=== PATIENT | female | born 1995 | race Caucasian/White ===

== ENCOUNTER → 2017-01-16 | Outpatient (CLI) | payer OTHER ==
[2017-01-16 10:55] LABS: PREG INTERNAL NEGATIVE QC NEG CLEAR BACKGROUND; PREG INTERNAL POSITIVE QC POS CONTROL LINE
== END | disposition home or self-care (01) ==
LOC: C.LAB 10:06
PROVIDERS: ATTEND Physician Assistant
DX: Z30.9 Encounter for contraceptive management, unspecified (principal)

== ENCOUNTER 2017-09-15 11:30 | Emergency (ER) | payer BC, OTHER ==
[~2017-09-15] VITALS: Ht 165.1 cm; Wt 100.0 kg
[2017-09-15 11:32] VITALS: TEMP 36.8; Ht 165.1 cm; Wt 100.0 kg
--- NOTE | 2017-09-15 12:20 | EMERGENCY ROOM VISIT NOTE ---
History First contact with patient: 11:36 Chief Complaint: ABDOMINAL PAIN Stated Complaint: ABD PAIN Nursing Triage Summary: lower abd pain started his am, " feels like i had to go to the br, sat on the toilet, i passed a clot, don't no if it was rectal or other" pt has an iud, pain feels like cramps she had when IUD placed, slight nausea History of Present Illness The patient is a 21 year old female who presents to the Emergency Room with complaints of suprapubic abdominal pain which began this morning. The patient describes the pain is intermittent, and states earlier this morning she felt like she had to move her bowels. She states she almost vomited due to the pain. She states she sat on the toilet for approximately 1 hour, and was unable to have a bowel movement. When she wiped, she noticed a small blood clot on the toilet paper, and states she also felt that there might be some mucus. She was unsure if it came from her rectum or vagina. The patient describes the abdominal pain as crampy, like menstrual cramps she got when her IUD was inserted. Her last menstrual period was March of last year, but she does have a Marcie IUD. Patient's last bowel movement was yesterday afternoon, and she describes it as normal. She states there may be some mild dysuria, but this is normal for her, she does not drink much water on a regular basis. She denies any upper abdominal pain, flank or back pain, diarrhea, recent illness, fever, chills, chest pain, difficulty breathing, or other concerning symptoms. Review of Systems A complete 10 point review of systems was reviewed with the patient with pertinent positives and negatives as per history of present illness. All else were negative. Past Medical/Surgical History None Social History Smoking Status: Never Smoker Current/Historical Medications No Active Prescriptions or Reported Meds Physical Exam Vital Signs Date Time Temp Pulse Resp B/P (MAP) Pulse Ox O2 Delivery O2 Flow Rate FiO2 09/15/17 13:50 63 17 107/59 98 09/15/17 11:32 36.8 88 17 142/83 100 Room Air Physical Exam VITALS: Vitals are noted on the nurse's note and reviewed by myself. Vital signs stable. GENERAL: This is a 21-year-old obese white female, in no acute distress, nondiaphoretic, well-developed well-nourished. SKIN: The skin was without rashes, erythema, edema, or bruising. There is no tenting of the skin. Capillary reflex less than 2 seconds. HEAD: Normocephalic atraumatic. EARS: External auditory canals clear, tympanic membranes pearly ca without erythema or effusion bilaterally. EYES: Pupils equal round and reactive to light and accommodation. Conjunctivae without injection, sclerae without icterus. Extraocular movements intact. NOSE: Patent, turbinates without inflammation or discharge. No sinus tenderness. MOUTH: Mucous membranes moist. Tonsils are not enlarged. Pharynx without erythema or exudate. Uvula midline. Airway patent. Tongue does not deviate. NECK: Supple without nuchal rigidity. No lymphadenopathy. No thyromegaly. Cervical spine is nontender. No JVD. HEART: Regular rate and rhythm without murmurs gallops or rubs. LUNGS: Clear to auscultation bilaterally without wheezes, rales or rhonchi. No dullness to percussion. No retractions or accessory muscle use. ABDOMEN: Positive bowel sounds x 4. Normal tympanic percussion. Mild suprapubic tenderness on palpation. The abdomen was otherwise soft, nontender, without masses or organomegaly. Ansari sign negative. No guarding or rebound tenderness. No CVA tenderness bilaterally. MUSCULOSKELETAL: No muscle atrophy, erythema, or edema noted. Full range of motion without joint tenderness in all extremities. No tenderness to palpation. Normal gait. Strength 5/5 throughout. NEURO: Patient was alert and oriented to person place and time. Normal sensation to light and sharp touch. Deep tendon reflexes 2+ throughout. No focal neurological deficits. Medical Decision & Procedures ER Provider Diagnostic Interpretation: ABDOMEN 2VIEW W/PA CHEST RTN CLINICAL HISTORY: abdominal pain, constipation COMPARISON STUDY: No previous studies for comparison. FINDINGS: The soft tissues, psoas shadows, renal outlines and intestinal gas pattern appear normal. There is no evidence for bowel obstruction. There is no evidence for free intraperitoneal air. No abnormal abdominal calcifications are seen. A frontal view of the chest was performed and is unremarkable. IMPRESSION: Normal study. The above report was generated using voice recognition software. It may contain grammatical, syntax or spelling errors. Electronically signed by: Frank Adamson M.D. 09/15/2017 12:45 PM Dictated Date/Time: 09/15/2017 12:45 PM Laboratory Results 09/15/17 11:55 Red Blood Count 5.08, Mean Corpuscular Volume 85.2, Mean Corpuscular Hemoglobin 29.5, Mean Corpuscular Hemoglobin Concent 34.6, Mean Platelet Volume 9.6, Neutrophils (%) (Auto) 77.8, Lymphocytes (%) (Auto) 14.3, Monocytes (%) (Auto) 6.6, Eosinophils (%) (Auto) 0.6, Basophils (%) (Auto) 0.4, Neutrophils # (Auto) 8.55, Lymphocytes # (Auto) 1.57, Monocytes # (Auto) 0.73, Eosinophils # (Auto) 0.07, Basophils # (Auto) 0.04 09/15/17 11:55 Test 09/15/17 11:50 09/15/17 11:55 Urine Color YELLOW Urine Appearance CLOUDY (CLEAR) Urine pH 8.5 (4.5-7.5) Urine Specific [place] 1.023 (1.000-1.030) Urine Protein NEG (NEG) Urine Glucose (UA) NEG (NEG) Urine Ketones TRACE (NEG) Urine Occult Blood 1+ (NEG) Urine Nitrite NEG (NEG) Urine Bilirubin NEG (NEG) Urine Urobilinogen NEG (NEG) Urine Leukocyte Esterase TRACE (NEG) Urine WBC (Auto) 1-5 /hpf (0-5) Urine RBC (Auto) 10-30 /hpf (0-4) Urine Hyaline Casts (Auto) 1-5 /lpf (0-5) Urine Epithelial Cells (Auto) >30 /lpf (0-5) Urine Bacteria (Auto) NEG (NEG) Urine Test NEG (NEG) White Blood Count 10.99 K/uL (4.8-10.8) Red Blood Count 5.08 M/uL (4.2-5.4) Hemoglobin 15.0 g/dL (12.0-16.0) Hematocrit 43.3 % (37-47) Mean Corpuscular Volume 85.2 fL (80-100) Mean Corpuscular Hemoglobin 29.5 pg (25-34) Mean Corpuscular Hemoglobin Concent 34.6 g/dl (32-36) Platelet Count 274 K/uL (130-400) Mean Platelet Volume 9.6 fL (7.4-10.4) Neutrophils (%) (Auto) 77.8 % Lymphocytes (%) (Auto) 14.3 % Monocytes (%) (Auto) 6.6 % Eosinophils (%) (Auto) 0.6 % Basophils (%) (Auto) 0.4 % Neutrophils # (Auto) 8.55 K/uL (1.4-6.5) Lymphocytes # (Auto) 1.57 K/uL (1.2-3.4) Monocytes # (Auto) 0.73 K/uL (0.11-0.59) Eosinophils # (Auto) 0.07 K/uL (0-0.5) Basophils # (Auto) 0.04 K/uL (0-0.2) RDW Standard Deviation 41.4 fL (36.4-46.3) RDW Coefficient of Variation 13.1 % (11.5-14.5) Immature Granulocyte % (Auto) 0.3 % Immature Granulocyte # (Auto) 0.03 K/uL (0.00-0.02) Prothrombin Time 10.8 SECONDS (9.0-12.0) Prothromb Time International Ratio 1.0 (0.9-1.1) Activated Partial Thromboplast Time 30.1 SECONDS (21.0-31.0) Partial Thromboplastin Ratio 1.2 Anion Gap 10.0 mmol/L (3-11) Est Creatinine Clear Calc Drug Dose 142.8 ml/min Estimated GFR () 136.5 Estimated GFR (Non- 117.7 BUN/Creatinine Ratio 13.2 (10-20) Calcium Level 9.4 mg/dl (8.5-10.1) Total Bilirubin 0.6 mg/dl (0.2-1) Aspartate Amino Transf (AST/SGOT) 17 U/L (15-37) Alanine Aminotransferase (ALT/SGPT) 27 U/L (12-78) Alkaline Phosphatase 94 U/L (45-117) Total Protein 7.9 gm/dl (6.4-8.2) Albumin 4.3 gm/dl (3.4-5.0) Globulin 3.6 gm/dl (2.5-4.0) Albumin/Globulin Ratio 1.2 (0.9-2) Medications Administered Medications (Trade) Dose Ordered Sig/Malcolm Route Start Time Stop Time Status Last Admin Dose Admin Ketorolac Tromethamine (Toradol Inj) 30 mg NOW STAT IV 09/15/17 13:15 09/15/17 13:16 DC 09/15/17 13:50 30 MG ED Course The patient was seen and evaluated as above. Rectal examination performed and stool was Hemoccult positive. IV access obtained, labs drawn. Abdominal x-ray was performed. This was reviewed by myself and radiologist as above. The patient was reevaluated and results discussed. The patient is feeling significantly better at this time. She has not had the urge to go to the bathroom, nor has she noticed any significant rectal bleeding. I discussed options for further imaging, and the patient declines and states she feels comfortable to go home. The patient was given 30 mg Toradol IV. Discharge instructions reviewed, and the patient was discharged home in good condition. Medical Decision This is a 21-year-old female patient presents to the emergency department today complaining of abdominal cramping associated with the urge to move her bowels. This began approximately 2-3 hours prior to arrival, and lasted for approximately 1 hour. The patient states she attempted to move her bowels on the toilet for 1 hour, and was unsuccessful. She does admit to straining. When she wiped, she noticed red blood on the toilet paper, and thought there could be one clot. She was uncertain if this was from her rectum or vagina. The patient does not report a history of hemorrhoids. On examination here, the patient has some mild suprapubic tenderness, but no other significant pain. Her laboratory workup was overall negative with very mildly elevated white blood cell count of 10.99. The patient's renal, hepatic function and electrolytes were normal. Coagulation studies were normal. Urinalysis appears to be contaminated with epithelial cells. There are red blood cells and trace leuk esterase noted in sample. X-ray was reviewed as above and did not show any significant signs of obstruction or constipation. On reevaluation after approximately 2 hours, the patient was feeling significantly improved. I did discuss with the patient options for ongoing imaging including CT scan and/or ultrasound. The patient does not feel that that is necessary, as she is feeling much better at this time. She was given very strict return precautions and encouraged to use an OTC stool softener to help in the case of some mild constipation. The patient will follow up closely outpatient with her primary care provider. I did discuss the case with Dr. Man, who is in agreement with the assessment and plan. Etiologies such as appendicitis, diverticulitis, obstruction, inflammatory bowel disease, renal colic, PUD, biliary pathology, pancreatitis, mesenteric ischemia, aortic pathology, infections, genitourinary, UTI, perforated viscus, as well as others were entertained. Medication Reconcilliation Current Medication List: was personally reviewed by me Blood Pressure Screening Patient's blood pressure: Normal blood pressure Impression Primary Impression: Abdominal pain Additional Impression: Rectal bleeding Departure Information Dispostion Home / Self-Care Condition GOOD Prescriptions No Active Prescriptions or Reported Meds Referrals No Doctor, Assigned (PCP) Patient Instructions ED Abdominal Pain Unkn Cause, My [facility] Additional Instructions You have been treated in the Emergency Department your Abdominal Pain. Laboratory results and imaging studies have ruled out any emergent causes for your abdominal pain which would warrant admission or surgery. As discussed, your rectal examination was positive for blood, however, I suspect this is related to straining on the toilet for an hour prior to coming to the ED. You may have a small hemorrhoid which is causing this blood. For pain control, you can use the following [id number] medicines (if >12 yo): Ibuprofen(Motrin, Advil) may be used for fever or pain. Use 600mg every six hours as needed. Take with food. Avoid using more than 2400mg in a 24 hour period. Do not use 2400mg per day for more than three consecutive days without physician direction. Prolonged inappropriate use can lead to stomach upset or ulcers. (AND/OR) Acetaminophen(Tylenol) may be used for fever or pain. Use 1000mg every six hours as needed. Avoid using more than 3000mg in a 24 hour period. Drink plenty of water and stay well hydrated. As with any trip to the Emergency Department, you should follow-up with your Primary Care Provider from today's visit. I recommend follow-up on Monday for repeat labs/rectal examination. Return to the emergency department if your symptoms persist despite treatment plan outlined above or if the following symptoms occur: increased fevers, chills , worsening nausea/vomiting, blood in your stool or urine, worsening pain, intractable pain, coffee-ground emesis, hemorrhage from your rectum, or other concerning symptoms. Problem Qualifiers Primary Impression: Abdominal pain Abdominal location: lower abdomen, unspecified Qualified Codes: R10.30 - Lower abdominal pain, unspecified
[2017-09-15 12:21] LABS: BASO % 0.4 %; BASO ABS # 0.04 K/uL (0-0.2); EOS % 0.6 %; EOS ABS # 0.07 K/uL (0-0.5); HEMATOCRIT 43.3 % (37-47); IG# 0.03 K/uL (0.00-0.02); LYMPH % 14.3 %; LYMPH ABS # 1.57 K/uL (1.2-3.4); MEAN CELL VOLUME 85.2 fL (80-100); MEAN CORPUSCULAR HEMOGLOBIN 29.5 pg (25-34); MEAN CORPUSCULAR HGB CONC 34.6 g/dl (32-36); MEAN PLATELET VOLUME 9.6 fL (7.4-10.4); MONO % 6.6 %; MONO ABS # 0.73 K/uL (0.11-0.59); NEUT % 77.8 %; NEUT ABS # 8.55 K/uL (1.4-6.5); PLATELET COUNT 274 K/uL (130-400); RED CELL DISTRIBUTION WIDTH CV 13.1 % (11.5-14.5); RED CELL DISTRIBUTION WIDTH SD 41.4 fL (36.4-46.3); WHITE BLOOD COUNT 10.99 K/uL (4.8-10.8)
[2017-09-15 12:35] LABS: PTT PATIENT 30.1 SECONDS (21.0-31.0)
[2017-09-15 12:44] LABS: ALBUMIN 4.3 gm/dl (3.4-5.0); CALCIUM 9.4 mg/dl (8.5-10.1); CREATININE 0.73 mg/dl (0.60-1.20); POTASSIUM 3.6 mmol/L (3.5-5.1)
[2017-09-15 12:47] LABS: TOTAL PROTEIN 7.9 gm/dl (6.4-8.2)
--- NOTE | 2017-09-15 12:47 | DIAGNOSTIC IMAGING REPORT ---
ABDOMEN 2VIEW W/PA CHEST RTN CLINICAL HISTORY: abdominal pain, constipation COMPARISON STUDY: No previous studies for comparison. FINDINGS: The soft tissues, psoas shadows, renal outlines and intestinal gas pattern appear normal. There is no evidence for bowel obstruction. There is no evidence for free intraperitoneal air. No abnormal abdominal calcifications are seen. A frontal view of the chest was performed and is unremarkable. IMPRESSION: Normal study. The above report was generated using voice recognition software. It may contain grammatical, syntax or spelling errors. Electronically signed by: Frank Adamson M.D. 09/15/2017 12:45 PM Dictated Date/Time: 09/15/2017 12:45 PM
[2017-09-15] MEDS ORDERED: KETOROLAC TROMETHAMINE 30 MG/ML VIAL IV STA (13:15)
[2017-09-15 13:50] VITALS: BP 107/59; PULSE 63; O2SAT 98
== END 2017-09-15 14:07 | disposition home or self-care (01) ==
LOC: C.EDB 11:32 → C.EDA 14:07
DX: R10.30 Lower abdominal pain, unspecified (principal); K62.5 Hemorrhage of anus and rectum

== ENCOUNTER 2021-08-11 23:06 | Inpatient (IN) ==
[2021-08-11] MEDS ORDERED: PENICILLIN G POTASSIUM 6 MU in DEXTROSE 5% 250 ML IV STA (23:54)
[2021-08-12] MEDS: LACTATED RINGER'S 1,000 ML IV PRN ×2 (00:03→04:31)
[2021-08-12] MEDS ORDERED: SODIUM CHLORIDE 0.9% 250 ML IV PRN (00:10)
[2021-08-12 00:16] LABS: Hematocrit (blood only) 34.6 % (37-47); Hemoglobin 11.5 g/dL (12.0-16.0); Mean Corpuscular Hgb Conc 33.2 g/dL (32-36); Mean Corpuscular Volume 84.4 fL (80-100); Mean Platelet Volume 10.6 fL (7.4-10.4); Platelet Count 267 K/uL (130-400); RDW Coefficient of Variation 13.4 % (11.5-14.5); White Blood Count 15.51 K/uL (4.8-10.8)
[2021-08-12] MEDS ORDERED: SODIUM CHLORIDE 0.9% INJ 10 ML VIAL ONE (00:16)
[2021-08-12] MEDS ORDERED: ePHEDrine sulfate 50 MG/ML AMP ONE (00:16)
[2021-08-12] MEDS ORDERED: BUPIVACAINE 0.25% 30 ML VIAL ONE (00:16)
[2021-08-12] MEDS ORDERED: fentaNYL citrate 100 MCG/2 ML VIAL ONE (00:16)
[2021-08-12] MEDS ORDERED: fentaNYL 2MCG/ML ROPIVACAINE 1.25MG/ML 100 ML BAG EPI ONE (00:17)
[2021-08-12] MEDS ORDERED: NALOXONE HCL 1 MG in SODIUM CHLORIDE 0.9% 1000ML 1,000 ML IV PRN (00:31)
[2021-08-12] MEDS ORDERED: ePHEDrine sulfate 50 MG/ML AMP IV PRN (00:31)
[2021-08-12] MEDS ORDERED: fentaNYL 2MCG/ML ROPIVACAINE 1.25MG/ML 100 ML BAG EPI PRN (00:31)
[2021-08-12] MEDS ORDERED: NALBUPHINE HCL INJ 10 MG/ML AMP IV PRN (00:31)
[2021-08-12] MEDS ORDERED: diphenhydrAMINE 50 MG/ML VIAL IV PRN (00:31)
[2021-08-12] MEDS ORDERED: NALOXONE HCL 0.4 MG/1 ML VIAL/CARP IV PRN (00:31)
--- NOTE | 2021-08-12 00:31 | Anesthesiology Consultation ---
Date of Service August 12, 2021 Assessment & Plan (1) Encounter for pre-operative examination: Chart Review Chart Review: Acceptable Risk for Surgery and Patient NOT seen in Pre Admission Testing Consults Requested none History Height/Weight Height: 5 ft 4 in Weight: 113.852 kg Allergies Allergy/AdvReac Type Severity Reaction Status Date / Time nitrofurantoin Allergy Mild Nausea Unverified 05/26/20 00:00 Medications Home Medications Medication Instructions Recorded Confirmed Last Taken metronidazole 500 mg tablet 500 mg PO BID 08/11/21 08/11/21 08/11/21 Active Medications Generic Name Dose Route Start Last Admin Trade Name Freq PRN Reason Stop Dose Admin Lactated Ringer's 1,000 mls @ 125 mls/hr 08/11/21 23:54 08/12/21 00:03 Lr IV 08/13/21 23:53 999 mls/hr .Q8H PRN Administration L&D Protocol Protocol Penicillin G Potassium 6 mu/ 262 mls @ 262 mls/hr 08/11/21 23:54 08/12/21 00:23 Dextrose IV 08/12/21 00:53 262 mls/hr NOW STA Administration Past Medical History Medical History No acute medical problems Past Surgical History Surgical History No pertinent past surgical history Social History Smoking Status: Former smoker Hx Alcohol Use: No Hx Substance Use: No Physical Exam Vital Signs Last Vital Signs Temp 97.9 F 08/11/21 23:31 Pulse 79 08/12/21 00:25 Resp 18 08/11/21 23:31 BP 132/72 08/11/21 23:31 Pulse Ox 99 08/12/21 00:25 Testing Laboratory Results 08/12/21 00:07
[2021-08-12] MEDS ORDERED: ONDANSETRON INJ 2 MG/ML 2 ML VIAL IV PRN (00:35)
[2021-08-12] MEDS ORDERED: ONDANSETRON INJ 2 MG/ML 2 ML VIAL ONE (00:45)
--- NOTE | 2021-08-12 00:51 | History & Physical Report ---
Date of Service August 12, 2021 Assessment & Plan (1) Term : Plan: start antibiotics plans for epidural History of Present Illness Chief Complaint: ruptured membranes at term Primary Care Provider: Shreya Kelly 25 F P0010 at 39 weeks admitted with SROM clear fluid with onset of labor. GBS is positive. Covid is pending. Allergies Allergy/AdvReac Type Severity Reaction Status Date / Time nitrofurantoin Allergy Mild Nausea Unverified 05/26/20 00:00 Home Medications Medication Instructions Recorded Confirmed Type metronidazole 500 mg tablet 500 mg PO BID 08/11/21 08/11/21 History Patient History Medical History No acute medical problems Surgical History No pertinent past surgical history Social History Smoking Status: Former smoker Hx Alcohol Use: No Hx Substance Use: No Preferred Language: Khmer Communication Ability: Effective Inhalation Therapy Aides Teacher Required: No Beliefs That Will Affect Care: None marital status: Current Living Situation: Spouse Other Information That Helps Us Care for You: No Feels Safe at Home: Yes Safety Concerns: Feels Safe At This Time Assistive Devices: Glasses OB History primigravida [employer] History neg Review of Systems All systems reviewed & are unremarkable except as noted in HPI & below Physical Exam Constitutional: WD/WN, vitals as above Eyes: PERRL, conjunctivae normal, anicteric sclerae Neck: trachea midline, no thyromegaly Respiratory: normal respiratory effort, lungs clear to auscultation Cardiovascular: Rate/Rhythm: regular rate Skin: no rashes, warm and dry Neurologic: patellar DTR's 2+ bilat, sensation intact Psychiatric: A+Ox3, euthymic affect Genitourinary: Manual OB Exam: + cervical dilation 4 cm, + cervical effacement 90% and + station 0 OB Exam Monitor Tracing: + external FHT monitor used, + external uterine monitor used, + category I and + normal FHT variability Results & Data ([facility]) Vital Signs (Past 12 Hours) Vital Signs Temp Pulse Resp BP Pulse Ox 08/12/21 00:42 98 H 92 08/12/21 00:40 88 97 08/12/21 00:35 128 H 97 01/27/22 00:30 79 99 08/12/21 00:25 79 99 08/11/21 23:31 36.6 C 78 18 132/72 08/11/21 23:29 78 132/72 Laboratory Results 08/12/21 08/12/21 08/12/21 00:00 00:07 00:07 WBC 15.51 H RBC 4.10 L Hgb 11.5 L Hct 34.6 L MCV 84.4 MCH 28.0 MCHC 33.2 RDW Std Deviation 40.0 RDW Coeff of Delmy 13.4 Plt Count 267 MPV 10.6 H SARS-CoV-2, RNA, NAAT NEGATIVE Crossmatch See Detail Monitoring External Monitor Cat 1
[2021-08-12] MEDS: PENICILLIN G POTASSIUM 3 MU in DEXTROSE 5% 100 ML IV SCH ×2 (04:48→10:16)
[2021-08-12] MEDS ORDERED: OXYTOCIN 30 UNITS/500 ML BAG IV PRN ×2 (09:07→12:33)
--- NOTE | 2021-08-12 09:08 | Labor Progress Brief Note ---
Date of Service August 12, 2021 Assessment & Plan Admission and Anticipated Discharge Date Admission Date: August 12, 2021 Physical Exam Genitourinary: Manual OB Exam: + cervical dilation 10 cm, + cervical effacement 100% and + station 0 some caput noted will start some Oxytocin to augment contractions Results & Data ([facility]) Vital Signs (Past 12 Hours) Vital Signs Temp Pulse Resp BP Pulse Ox 08/12/21 09:05 79 95 08/12/21 09:00 71 92 08/12/21 08:55 78 130/72 93 08/12/21 08:50 78 93 08/12/21 08:45 71 91 08/12/21 08:40 71 121/66 93 08/12/21 08:37 72 90 08/12/21 08:35 68 92 08/12/21 08:30 70 91 08/12/21 08:29 68 90 08/12/21 08:26 68 115/58 L 08/12/21 08:25 70 91 08/12/21 08:24 67 90 08/12/21 08:20 68 91 08/12/21 08:17 74 90 08/12/21 08:15 75 91 08/12/21 08:11 72 117/64 08/12/21 08:10 75 92 08/12/21 08:05 73 91 08/12/21 08:00 71 92 08/12/21 07:56 70 120/65 08/12/21 07:55 70 94 08/12/21 07:53 72 90 08/12/21 07:50 73 95 08/12/21 07:47 74 88 L 08/12/21 07:45 72 89 L 08/12/21 07:42 75 89 L 08/12/21 07:40 72 90 08/12/21 07:39 77 127/67 08/12/21 07:36 73 88 L 08/12/21 07:35 78 94 08/12/21 07:30 79 92 08/12/21 07:26 76 123/67 08/12/21 07:25 81 93 08/12/21 07:20 77 93 08/12/21 07:15 76 93 08/12/21 07:10 77 128/69 93 08/12/21 07:05 76 93 08/12/21 07:00 79 92 08/12/21 06:58 37.5 C 18 08/12/21 06:55 78 129/73 93 08/12/21 06:50 82 94 08/12/21 06:45 85 93 08/12/21 06:43 77 89 L 08/12/21 06:40 78 92 08/12/21 06:39 75 119/65 08/12/21 06:37 79 89 L 08/12/21 06:35 79 92 08/12/21 06:30 83 94 08/12/21 06:25 87 94 08/12/21 06:24 80 119/66 08/12/21 06:20 81 95 08/12/21 06:15 90 94 08/12/21 06:10 89 94 08/12/21 06:09 85 121/68 08/12/21 06:05 82 95 08/12/21 06:00 86 94 08/12/21 05:56 75 122/66 08/12/21 05:55 77 95 08/12/21 05:50 84 92 08/12/21 05:45 78 91 08/12/21 05:40 79 93 08/12/21 05:39 76 113/68 08/12/21 05:35 77 93 08/12/21 05:30 82 95 08/12/21 05:25 77 113/68 93 08/12/21 05:20 79 94 08/12/21 05:15 80 94 08/12/21 05:10 81 122/69 95 08/12/21 05:05 86 94 08/12/21 05:00 87 94 08/12/21 04:56 79 113/58 L 08/12/21 04:55 81 94 08/12/21 04:50 36.9 C 82 95 08/12/21 04:45 81 96 08/12/21 04:41 69 117/59 L 08/12/21 04:40 70 93 08/12/21 04:35 70 93 08/12/21 04:30 71 95 08/12/21 04:25 82 95 08/12/21 04:24 73 116/57 L 08/12/21 04:20 72 94 08/12/21 04:15 74 94 08/12/21 04:11 70 111/58 L 08/12/21 04:10 72 94 08/12/21 04:05 72 94 08/12/21 04:00 72 94 08/12/21 03:55 86 94 08/12/21 03:54 72 113/57 L 08/12/21 03:50 73 96 08/12/21 03:45 74 94 08/12/21 03:41 76 117/60 08/12/21 03:40 75 95 08/12/21 03:35 76 94 08/12/21 03:30 76 96 08/12/21 03:25 69 91 08/12/21 03:24 67 114/59 L 08/12/21 03:20 71 92 08/12/21 03:15 37.2 C 72 93 08/12/21 03:10 65 116/61 95 08/12/21 03:05 69 93 08/12/21 03:00 70 93 08/12/21 02:55 69 115/61 95 08/12/21 02:50 73 94 08/12/21 02:45 80 94 08/12/21 02:40 79 94 08/12/21 02:39 70 116/61 08/12/21 02:35 75 94 08/12/21 02:30 72 94 08/12/21 02:25 75 94 08/12/21 02:24 68 115/59 L 08/12/21 02:20 69 94 08/12/21 02:15 73 95 08/12/21 02:10 73 96 08/12/21 02:09 70 113/59 L 08/12/21 02:05 82 95 08/12/21 02:00 88 94 08/12/21 01:55 77 111/58 L 95 08/12/21 01:50 78 95 08/12/21 01:45 98 H 95 08/12/21 01:41 83 120/65 08/12/21 01:40 83 96 08/12/21 01:35 94 H 95 08/12/21 01:30 79 94 08/12/21 01:25 79 94 08/12/21 01:20 73 112/64 94 08/12/21 01:16 72 112/64 08/12/21 01:15 73 94 08/12/21 01:10 75 122/65 96 08/12/21 01:08 71 113/62 08/12/21 01:06 71 114/65 08/12/21 01:05 74 97 08/12/21 01:04 67 116/67 08/12/21 01:02 66 115/68 08/12/21 01:00 37.1 C 75 18 112/68 97 08/12/21 00:58 73 112/64 08/12/21 00:56 110/79 08/12/21 00:55 86 97 08/12/21 00:54 81 118/73 08/12/21 00:50 87 98 08/12/21 00:45 94 H 98 08/12/21 00:42 98 H 92 08/12/21 00:40 88 97 08/12/21 00:35 128 H 97 08/12/21 00:30 79 99 08/12/21 00:25 79 99 08/11/21 23:31 36.6 C 78 18 132/72 08/11/21 23:29 78 132/72
[2021-08-12] MEDS: OXYTOCIN 30 UNITS/500 ML BAG IV PRN ×3 (11:47→16:01)
--- NOTE | 2021-08-12 12:00 | Delivery Summary ---
Vaginal Delivery Summary Date of Service August 12, 2021 Vaginal Delivery Summary Delivery Note live female GINA over intact perineum with nuchal cord x1 reduced at delivery of head with delayed cord clamping and Apgars 8/9 weight pending. Cord blood obtained followed by spontaneous delivery of intact placenta. No tears. EBL 150 ml. Final sponge and instrument count are correct. Mom and baby stable.
[2021-08-12] MEDS ORDERED: HYDROCORTISONE ACETATE 25 MG SUPP PR PRN (12:33)
[2021-08-12] MEDS ORDERED: DIPHTHERIA/TETANUS/PERTUSSIS 0.5 ML SYR/VIAL IM ONE (12:33)
[2021-08-12] MEDS ORDERED: ACETAMINOPHEN 325 MG TAB PO PRN (12:33)
[2021-08-12] MEDS ORDERED: BENZOCAINE 20% AER SPR 82.5 GM CAN EXT PRN (12:33)
[2021-08-12] MEDS ORDERED: SUPERCREAM 0.870% 15 GM JAR EXT PRN (12:33)
[2021-08-12] MEDS ORDERED: bisacodyL 10 MG SUPP PR PRN (12:33)
--- NOTE | 2021-08-12 14:16 | Anesthesia Procedure Note ---
Date of Service August 12, 2021 Anesthesia Post Epidural Note Vital Signs Vital Signs: Temp Pulse Resp BP Pulse Ox 37.5 C 93 H 18 107/55 L 93 08/12/21 11:08 08/12/21 13:25 08/12/21 11:08 08/12/21 13:25 08/12/21 11:45 Notes Mental Status: alert / awake / arousable and participated in evaluation Nausea / Vomiting: adequately controlled Pain: adequately controlled Airway Patency, RR, SpO2: stable & adequate BP & HR: stable & adequate Hydration State: stable & adequate Neuraxial Anesthesia: was administered and sensory block is resolving Anesthetic Complications: no major complications apparent Epidural: Removed without complications and With tip intact
[2021-08-12] MEDS ORDERED: miSOPROStoL 200 MCG TAB ONE (15:27)
[2021-08-12] MEDS ORDERED: LIDOCAINE 1% LOCAL 20 ML VIAL ONE (15:27)
[2021-08-12] MEDS ORDERED: METHYLERGONOVINE MALEATE 0.2 MG/ML AMP ONE (15:36)
[2021-08-12] MEDS ORDERED: miSOPROStoL 200 MCG TAB PR ONE (15:51)
[2021-08-12] MEDS ORDERED: METHYLERGONOVINE MALEATE 0.2 MG/ML AMP IM STA (15:51)
--- NOTE | 2021-08-12 15:55 | Obstetrical Progress Note ---
Date of Service August 12, 2021 Subjective called to see patient bleeding post delivery Physical Exam Constitutional WD/WN, vitals as above Bladder strait cathed for 800 ml urine. Genitourinary small perineal arterial bleeder noted at introitus. 10 ml 1% Lidocaine instilled locally. Several figure of eight 3/0 Vicryl sutures placed to control bleeder. All sponge needle and instrument counts correct after repair. EBL 400 ml. Mom stable. Results & Data ([facility]) Vital Signs (Past 12 Hours) Vital Signs Temp Pulse Resp BP Pulse Ox 08/12/21 15:41 123 H 122/71 08/12/21 13:25 93 H 107/55 L 08/12/21 13:10 88 102/55 L 08/12/21 12:55 97 H 113/65 08/12/21 12:40 93 H 108/56 L 08/12/21 12:25 100 H 103/59 L 08/12/21 12:10 98 H 124/62 08/12/21 11:55 88 97/67 L 08/12/21 11:45 90 93 08/12/21 11:40 82 120/59 L 93 08/12/21 11:35 79 95 08/12/21 11:30 88 94 08/12/21 11:29 107 H 87 L 08/12/21 11:25 85 118/63 94 08/12/21 11:20 77 94 08/12/21 11:15 86 93 08/12/21 11:10 77 113/68 94 08/12/21 11:08 37.5 C 18 08/12/21 11:05 69 94 08/12/21 11:00 69 93 08/12/21 10:57 69 89 L 08/12/21 10:55 71 93 08/12/21 10:54 67 109/64 08/12/21 10:50 66 93 08/12/21 10:45 70 90 08/12/21 10:40 65 106/64 91 08/12/21 10:39 75 90 08/12/21 10:35 66 91 08/12/21 10:30 72 94 08/12/21 10:25 83 95 08/12/21 10:24 71 109/60 08/12/21 10:20 73 94 08/12/21 10:15 74 18 94 08/12/21 10:10 67 94 08/12/21 10:09 64 108/58 L 08/12/21 10:05 66 94 08/12/21 10:00 73 92 08/12/21 09:55 66 107/58 L 93 08/12/21 09:50 70 93 08/12/21 09:45 68 92 08/12/21 09:41 68 115/60 08/12/21 09:40 75 94 08/12/21 09:35 67 92 08/12/21 09:30 73 18 95 08/12/21 09:25 73 118/58 L 94 08/12/21 09:22 36.8 C 08/12/21 09:20 71 93 08/12/21 09:15 69 92 08/12/21 09:10 72 131/69 93 08/12/21 09:05 79 95 08/12/21 09:00 71 18 92 08/12/21 08:55 78 130/72 93 08/12/21 08:50 78 93 08/12/21 08:45 71 91 08/12/21 08:40 71 121/66 93 08/12/21 08:37 72 90 08/12/21 08:35 68 92 08/12/21 08:30 70 18 91 08/12/21 08:29 68 90 08/12/21 08:26 68 115/58 L 08/12/21 08:25 70 91 08/12/21 08:24 67 90 08/12/21 08:20 68 91 08/12/21 08:17 74 90 08/12/21 08:15 75 18 91 08/12/21 08:11 72 117/64 08/12/21 08:10 75 92 08/12/21 08:05 73 91 08/12/21 08:00 71 18 92 08/12/21 07:56 70 120/65 08/12/21 07:55 70 94 08/12/21 07:53 72 90 08/12/21 07:50 73 95 08/12/21 07:47 74 88 L 08/12/21 07:45 72 18 89 L 08/12/21 07:42 75 89 L 08/12/21 07:40 72 90 08/12/21 07:39 77 127/67 08/12/21 07:36 73 88 L 08/12/21 07:35 78 94 08/12/21 07:30 79 92 08/12/21 07:26 76 123/67 08/12/21 07:25 81 93 08/12/21 07:20 77 93 08/12/21 07:15 76 93 08/12/21 07:10 77 128/69 93 08/12/21 07:05 76 93 08/12/21 07:00 79 92 08/12/21 06:58 37.5 C 18 08/12/21 06:55 78 129/73 93 08/12/21 06:50 82 94 08/12/21 06:45 85 93 08/12/21 06:43 77 89 L 08/12/21 06:40 78 92 08/12/21 06:39 75 119/65 08/12/21 06:37 79 89 L 08/12/21 06:35 79 92 08/12/21 06:30 83 94 08/12/21 06:25 87 94 08/12/21 06:24 80 119/66 08/12/21 06:20 81 95 08/12/21 06:15 90 94 08/12/21 06:10 89 94 08/12/21 06:09 85 121/68 08/12/21 06:05 82 95 08/12/21 06:00 86 94 08/12/21 05:56 75 122/66 08/12/21 05:55 77 95 08/12/21 05:50 84 92 08/12/21 05:45 78 91 08/12/21 05:40 79 93 08/12/21 05:39 76 113/68 08/12/21 05:35 77 93 08/12/21 05:30 82 95 08/12/21 05:25 77 113/68 93 08/12/21 05:20 79 94 08/12/21 05:15 80 94 08/12/21 05:10 81 122/69 95 08/12/21 05:05 86 94 08/12/21 05:00 87 94 08/12/21 04:56 79 113/58 L 08/12/21 04:55 81 94 08/12/21 04:50 36.9 C 82 95 08/12/21 04:45 81 96 08/12/21 04:41 69 117/59 L 08/12/21 04:40 70 93 08/12/21 04:35 70 93 08/12/21 04:30 71 95 08/12/21 04:25 82 95 08/12/21 04:24 73 116/57 L 08/12/21 04:20 72 94 08/12/21 04:15 74 94 08/12/21 04:11 70 111/58 L 08/12/21 04:10 72 94 08/12/21 04:05 72 94 08/12/21 04:00 72 94 08/12/21 03:55 86 94 08/12/21 03:54 72 113/57 L
[2021-08-12] MEDS: IBUPROFEN 600 MG TAB PO PRN (17:37)
[2021-08-12] MEDS: DOCUSATE SODIUM 100 MG CAP PO SCH (20:57)
[2021-08-13 06:51] LABS: Hematocrit (blood only) 22.5 % (37-47); Hemoglobin 7.2 g/dL (12.0-16.0); Mean Corpuscular Hemoglobin 27.8 pg (25-34); Mean Corpuscular Volume 86.9 fL (80-100); Platelet Count 194 K/uL (130-400); RDW Coefficient of Variation 13.9 % (11.5-14.5); Red Blood Count 2.59 M/uL (4.2-5.4); White Blood Count 14.08 K/uL (4.8-10.8)
[2021-08-13] MEDS: IBUPROFEN 600 MG TAB PO PRN ×2 (08:08→17:22)
[2021-08-13] MEDS: PRENATAL VITAMIN 1 TAB PO SCH (08:08)
[2021-08-13] MEDS: DOCUSATE SODIUM 100 MG CAP PO SCH ×2 (08:10→19:49)
--- NOTE | 2021-08-13 10:05 | Obstetrical Progress Note ---
Date of Service August 13, 2021 Assessment & Plan (1) Normal course: PPD #1 pt doing well H/H 7.2/21.5- Assymptomatic On fetabs repeat H/H PM th anticipate disch tomorrow Results & Data ([facility]) Vital Signs (Past 12 Hours) Vital Signs Temp Pulse Resp BP Pulse Ox 08/13/21 07:45 36.8 C 90 16 100/68 98 08/13/21 03:50 36.9 C 83 14 108/72 98 08/12/21 23:55 36.9 C 98 H 16 114/76 97
--- NOTE | 2021-08-13 10:15 | Obstetrical Progress Note ---
Date of Service August 13, 2021 Assessment & Plan (1) Normal course: PPD #1 pt doing well H/H 7.2/21.5 On FE tabs, stable vitals. No Tachycardia repeat H/H PM anticipate disch tomorrow Results & Data ([facility]) Vital Signs (Past 12 Hours) Vital Signs Temp Pulse Resp BP Pulse Ox 08/13/21 07:45 36.8 C 90 16 100/68 98 08/13/21 03:50 36.9 C 83 14 108/72 98 08/12/21 23:55 36.9 C 98 H 16 114/76 97
[2021-08-13] MEDS ORDERED: FERROUS SULFATE 325 MG/7.4 ML UDP PO SCH (10:45)
[2021-08-13] MEDS: bisacodyL 5 MG TABEC PO SCH ×2 (19:49→19:52)
[2021-08-13 21:18] LABS: Hematocrit (blood only) 21.9 % (37-47); Hemoglobin 7.1 g/dL (12.0-16.0)
[2021-08-14 06:20] LABS: Hematocrit (blood only) 23.5 % (37-47); Hemoglobin 7.4 g/dL (12.0-16.0)
[2021-08-14] MEDS ORDERED: FERROUS SULFATE 325 MG TAB PO SCH (09:00)
[2021-08-14] MEDS: DOCUSATE SODIUM 100 MG CAP PO SCH (09:09)
[2021-08-14] MEDS: IBUPROFEN 600 MG TAB PO PRN (09:09)
[2021-08-14] MEDS: PRENATAL VITAMIN 1 TAB PO SCH (09:09)
--- NOTE | 2021-08-14 10:30 | Obstetrical Progress Note ---
Date of Service August 14, 2021 Subjective Ambulation: ambulating normally Voiding: no voiding problems Passing Gas:: Yes Diet Tolerance:: regular diet Lochia:: Small Feeding Type:: bottle feeding Current Pain Level(1-10): 0 doing well plans for d/c Physical Exam Constitutional WD/WN, vitals as above comfortable abdomen soft and non-tender fundus firm no edema neg Stephanie's for d/c Results & Data ([facility]) Vital Signs (Past 12 Hours) Vital Signs Temp Pulse Resp BP BP 08/14/21 07:29 36.8 C 90 16 106/67 08/13/21 23:55 36.6 C 76 18 104/67 Laboratory Results Laboratory Results - last 72 hr 08/12/21 08/12/21 08/12/21 00:00 00:07 00:07 WBC 15.51 H RBC 4.10 L Hgb 11.5 L Hct 34.6 L MCV 84.4 MCH 28.0 MCHC 33.2 RDW Std Deviation 40.0 RDW Coeff of Delmy 13.4 Plt Count 267 MPV 10.6 H SARS-CoV-2, RNA, NAAT NEGATIVE Blood Type O Positive Antibody Screen NEGATIVE Crossmatch See Detail 08/13/21 08/13/21 08/14/21 06:02 21:10 06:04 WBC 14.08 H RBC 2.59 L Hgb 7.2 L D 7.1 L 7.4 L Hct 22.5 L 21.9 L 23.5 L MCV 86.9 MCH 27.8 MCHC 32.0 RDW Std Deviation 44.0 RDW Coeff of Delmy 13.9 Plt Count 194 MPV 10.0 SARS-CoV-2, RNA, NAAT Blood Type Antibody Screen Crossmatch
--- NOTE | 2021-08-14 11:46 | Obstetrical Progress Note ---
Date of Service August 14, 2021 Physical Exam Genitourinary Manual OB Exam: + cervical dilation 5 cm and 6 cm, + cervical effacement 90%, + station -1 and + amniotic fluid clear OB Exam Monitor Tracing: + external FHT monitor used, + external uterine monitor used, + category I and + normal FHT variability will continue to labor at this time and re-position with progress made Results & Data ([facility]) Vital Signs (Past 12 Hours) Vital Signs Temp Pulse Resp BP BP 08/14/21 07:29 36.8 C 90 16 106/67 08/13/21 23:55 36.6 C 76 18 104/67
== END 2021-08-14 16:30 | disposition home or self-care (01) | DRG 807 ==
LOC: OPB 23:06 → 4S1 23:20 → 4S2 08-12 17:20
DX: O99.824 Streptococcus B carrier state complicating childbirth; Z87.891 Personal history of nicotine dependence; O69.81X0 Labor and delivery complicated by cord around neck, without compression, not applicable or unspecified; O42.02 Full-term premature rupture of membranes, onset of labor within 24 hours of rupture; Z88.1 Allergy status to other antibiotic agents; O90.89 Other complications of the puerperium, not elsewhere classified; Z79.899 Other long term (current) drug therapy; Z37.0 Single live birth; Z3A.39 39 weeks gestation of pregnancy